=== PATIENT | female | born 1995 | race Two or more races ===

== ENCOUNTER 2017-04-03 23:06 | Emergency (ER) | payer MEDICAID, OTHER ==
[~2017-04-03] VITALS: Ht 170.2 cm; Wt 79.5 kg
[~2017-04-03 23:06] MED LIST: ABILIFY PO; ARIP1TAB46 PO
[2017-04-03 23:11] VITALS: BP 113/78; PULSE 91; RESP 16; TEMP 98; O2SAT 98
[2017-04-03 23:40] VITALS: BP 114/59; PULSE 87; RESP 18; TEMP 98.1; O2SAT 95
--- NOTE | 2017-04-03 23:44 | PD ---
HPI Chief Complaint: Injury Time Seen by Provider: 23:40 Travel History International Travel<30 days: No Contact w/Intl Traveler<30days: No Traveled to known affect area: No History of Present Illness HPI 21-year-old female presents to the emergency department for complaint of left foot and ankle pain since 2 PM. Patient states she was going down steps and at the bottom of the last 3 steps she misstepped and fell. Patient states she did not hit her head did not have loss of consciousness did not injure her neck back chest abdomen pelvis or other extremities. Patient states she's been nonweightbearing since the incident. Patient denies any numbness tingling or weakness. Patient is noted swelling to the foot and the ankle. No bruising. Patient denies previous injury to the left ankle or foot. Patient rates pain as severe. Patient has taken no medications for symptom relief. Patient denies and states she is currently menstruating. PFSH Past Medical History Narrative Medical Bipolar disorder; no tobacco use no alcohol use no substance use ADHD: No Bipolar Disorder: Yes Cancer: No Cardiovascular Problems: No Diabetes: No Diminished Hearing: No Psychiatric: Yes (BIPOLAR DISORDER) Immunizations Current: Yes Migraines: No Seizures: No Thyroid Disease: No Ulcer: No Social History Alcohol Use: No Tobacco Use: No Substance Use: No Allergies-Medications (Allergen,Severity, Reaction): Coded Allergies: No Known Allergies (Verified , 04/03/17) Reported Meds & Prescriptions Reported Meds & Active Scripts Active No Active Prescriptions or Reported Medications Review of Systems Except as stated in HPI: all other systems reviewed are Neg General / Constitutional: No: Fever HENT: No: Congestion Cardiovascular: No: Chest Pain or Discomfort Respiratory: No: Shortness of Breath Gastrointestinal: No: Abdominal Pain Genitourinary: No: Flank Pain Musculoskeletal: Positive: Pain (left ankle foot) Skin: No Rash Neurologic: No: Weakness Psychiatric: No: Anxiety Hematologic/Lymphatic: No: Lymph Node Enlargement Physical Exam Narrative GENERAL: Well-developed well-nourished female in no acute distress no respiratory distress SKIN: Warm and dry. HEAD: Normocephalic. EYES: No scleral icterus. No injection or drainage. NECK: Supple, trachea midline. No JVD or lymphadenopathy. CARDIOVASCULAR: Regular rate and rhythm without murmurs, gallops, or rubs. RESPIRATORY: Breath sounds equal bilaterally. No accessory muscle use. GASTROINTESTINAL: Abdomen soft, non-tender, nondistended. MUSCULOSKELETAL: No cyanosis, or edema. Attention left lower leg edema of the left ankle and foot dorsalis pedis pulse palpable 2+ with capillary refill brisk and less than 2 seconds no deformity noted BACK: Nontender without obvious deformity. No CVA tenderness. Data Data Last Documented VS Vital Signs Date Time Temp Pulse Resp B/P Pulse Ox O2 Delivery O2 Flow Rate FiO2 04/03/17 23:40 98.1 87 18 114/59 95 Orders Foot, Complete ([id number]) (04/03/17 ) Ankle, Complete ([id number]) (04/03/17 ) Ice/Cold Pack (04/03/17 23:40) MDM Medical Decision Making Medical Screen Exam Complete: Yes Emergency Medical Condition: Yes Medical Record Reviewed: Yes Interpretation(s) left ankle xrL nabi left foot xray: nabi Differential Diagnosis Sprain strain fracture subluxation dislocation contusion Narrative Course Ice pack applied imaging studies ordered; patient reports she is not and currently menstruating poc hcg deferred Patient given ibuprofen 800 mg by mouth as well as padded Kieran to left ankle foot and crutches; patient stable for outpatient management and follow-up with her primary care provider and orthopedist as needed Diagnosis Primary Impression: Left ankle sprain Qualified Code: S93.402A - Sprain of left ankle, unspecified ligament, initial encounter Additional Impression: Contusion of left foot Qualified Code: S90.32XA - Contusion of left foot, initial encounter Referrals: Orthopedist as needed Primary Care Physician call for appointment Patient Instructions: General Instructions Departure Forms: Tests/Procedures, Work Release Special Instructions: no work x 1 day; modified duty no weight bearing left foot ankle x 2 days Additional Instructions: Elevate lower extremity Apply ice intermittently to decrease areas of swelling Take ibuprofen 800 mg as often as every 8 hours as needed for pain associated with inflammation Return to the emergency department for any concerns or change in condition No work times one day; modified duty 2 days Med/Other Pt SpecificInfo: Prescription(s) given Scripts Ibuprofen 800 Mg [id number] Mg PO Q8H PRN (PAIN GREATER THAN 5) #12 TAB Ref 0 Prov:Daisy Be MD 04/04/17 Disposition: 01 DISCHARGE HOME Condition: Stable Daisy Be H. MD April 03, 2017 23:44
[2017-04-04] MEDS ORDERED: IBUPROFEN 800 MG TAB PO ONE (00:30)
[2017-04-04] MEDS ORDERED: IBUP800T23 PO (00:30)
--- NOTE | 2017-04-04 00:30 | RADHPO ---
EXAM DATE/TIME: 04/04/2017 00:04 [facility] COMPARISON: No previous studies available for comparison. INDICATIONS : Fall down stairs. Left foot pain. MEDICAL HISTORY : None. SURGICAL HISTORY : None. ENCOUNTER: Initial ACUITY: 1 day PAIN SCORE: 8/10 LOCATION: Left lateral FINDINGS: Three view examination of the left foot demonstrates no soft tissue swelling, dislocation, or fractur e. The tarsal bones appear intact. The interphalangeal and metatarsophalangeal joints are intact. The calcaneus is intact. Bony mineralization is normal. A radiopaque density is seen involving the skin surface at the plantar surface. CONCLUSION: Unremarkable examination of the left foot. Seamus Bill Jr., MD on April 04, 2017 at 0:28 Board Certified Radiologist. This report was verified electronically.
--- NOTE | 2017-04-04 00:30 | RADHPO ---
EXAM DATE/TIME: 04/04/2017 00:09 [facility] COMPARISON: No previous studies available for comparison. INDICATIONS : Fall down stairs. Left ankle pain. MEDICAL HISTORY : None. SURGICAL HISTORY : None. ENCOUNTER: Initial ACUITY: 1 day PAIN SCORE: 9/10 LOCATION: Left lateral FINDINGS: Three view exam was performed of the left ankle. The bony structures are in normal alignment. No ev idence of fracture, dislocation, or soft tissue swelling. The ankle mortise is intact. No radiopaqu e foreign bodies are seen. Bony mineralization is normal. CONCLUSION: Unremarkable examination of the left ankle. Seamus Bill Jr., MD on April 04, 2017 at 0:29 Board Certified Radiologist. This report was verified electronically.
[2017-04-04 00:40] VITALS: BP 102/62; PULSE 82; RESP 17; O2SAT 100
== END 2017-04-04 01:09 | disposition home or self-care (01) ==
LOC: PHED 23:06
DX: S93.402A Sprain of unspecified ligament of left ankle, initial encounter (principal); S90.32XA Contusion of left foot, initial encounter; W10.9XXA Fall (on) (from) unspecified stairs and steps, initial encounter
CPT/HCPCS: 73610; 73630; 99283; E0113

== ENCOUNTER 2017-09-13 14:42 | Emergency (ER) | payer MEDICAID ==
[~2017-09-13] VITALS: Ht 170.2 cm; Wt 90.0 kg
[~2017-09-13 14:42] MED LIST changes: -ABILIFY PO; -ARIP1TAB46 PO; +IBUP800T23 PO
[2017-09-13 14:46] VITALS: BP 134/78; PULSE 71; RESP 16; TEMP 98.6; O2SAT 96
== END 2017-09-13 16:50 | disposition left against medical advice (07) ==
LOC: NED 14:42
DX: Z53.21 Procedure and treatment not carried out due to patient leaving prior to being seen by health care provider (principal)
CPT/HCPCS: 99281